=== PATIENT | male | born 1970 | race Hispanic/Latino ===

== ENCOUNTER 2018-08-24 11:13 | Emergency (ER) | payer OTHER ==
[~2018-08-24] VITALS: Ht 177.8 cm; Wt 117.5 kg
[~2018-08-24 11:13] MED LIST: BENICAR20 MG PO; DICYCLOMINE HCL10 MG PO; LEVAQUIN500 MG PO; NORCO 5-325 TA1 EACH PO; PANTOPRAZOLE SO40 MG PO; PROMETHAZINE HC25 M1 PO; TYLENOL # 31 EA PO
[2018-08-24] MEDS ORDERED: KETOROLAC TROMETHAMINE 30 MG/ML VIAL IV STA (11:35)
== END 2018-08-24 12:38 | disposition home or self-care (01) ==
LOC: FSED 11:13
DX: M54.2 Cervicalgia (principal); S16.1XXA Strain of muscle, fascia and tendon at neck level, initial encounter; V43.52XA Car driver injured in collision with other type car in traffic accident, initial encounter; Y92.488 Other paved roadways as the place of occurrence of the external cause
CPT/HCPCS: 99283; J1885